=== PATIENT | female | born 1970 | race African-American/Black ===

== ENCOUNTER 2023-05-09 15:36 | Emergency (ER) | payer MEDICARE, OTHER ==
[2023-05-09 16:33] VITALS: RESP 18
--- NOTE | 2023-05-09 16:35 | ED ---
Headache HPI - General Source: patient, RN notes reviewed Mode of arrival: ambulatory Limitations: no limitations <Haley Burns - Last Filed: 05/09/23 16:34> <Malka Lynch - Last Filed: 05/09/23 18:58> - General Chief Complaint: Headache Stated Complaint: [place]/from [place] Time Seen by Provider: 05/09/23 16:34 - History of Present Illness Initial Comments: Patient is a 52-year-old female presented to the ER with a chief complaint of a headache. Patient is a resident at [facility]. She states a week ago she fell and hit her head and has been experiencing dizziness and headache since. (Haley Burns) Patient is a 52-year-old female with history of hypertension and substance abuse who presents emergency room with complaints of persistent headaches over the last week. Patient states that she had a fall into a wall and onto the floor about 2 weeks ago while visiting a "crack house". Patient denies any loss of consciousness at that time however has had persistent headache then. She's been taking Motrin Tylenol symptom relief. She denies any worsening pain. She denies any vision changes however does have occasional complaints. She denies that this is the worst headache of her life or thunderclap headache. Patient denies any cough congestion fevers or other flulike symptoms. Patient resides at [facility] where she is undergoing treatment for crack cocaine abuse. She has not used drugs in over a month. Patient states she is on Topamax for crack cocaine cravings. she is not anticoagulated. she denies any previous TBI or concussions. (Malka Lynch) - Related Data Previous Rx's Medication Instructions Recorded Ketorolac [Toradol] 10 mg PO Q8HR #15 tab 05/09/23 diphenhydrAMINE [Benadryl] 25 mg PO QID PRN #20 capsule 05/09/23 Allergies Allergy/AdvReac Type Severity Reaction Status Date / Time losartan Allergy Rash/Hives Verified 05/09/23 16:17 Penicillins Allergy Rash/Hives Verified 05/09/23 16:17 buspirone [From BuSpar] AdvReac Nausea & Verified 05/09/23 16:17 Vomiting risperidone AdvReac Nausea & Verified 05/09/23 16:17 Vomiting Review of Systems ROS Other: All systems not noted in ROS Statement are negative. <Haley Burns - Last Filed: 05/09/23 16:34> ROS Other: All systems not noted in ROS Statement are negative. <Malka Lynch - Last Filed: 05/09/23 18:58> ROS Statement: Those systems with pertinent positive or pertinent negative responses have been documented in the HPI. Past Medical History Past Medical History: Asthma, Hypertension History of Any Multi-Drug Resistant Organisms: None Reported Past Surgical History: Section, Heart Catheterization, Hernia Repair, Tonsillectomy Past Psychological History: No Psychological Hx Reported Smoking Status: Never smoker Past Alcohol Use History: None Reported Past Drug Use History: Cocaine <Haley Burns - Last Filed: 05/09/23 16:34> General Exam Limitations: no limitations <Haley Burns - Last Filed: 05/09/23 16:34> Limitations: no limitations General appearance: alert, in no apparent distress Head exam: Present: atraumatic Eye exam: Present: normal appearance, PERRL, EOMI ENT exam: Present: normal exam, mucous membranes moist, TM's normal bilaterally, other (No hemotympanum bilaterally) Neck exam: Present: normal inspection, tenderness (mild midline pain, no ecchymosis or erythema. normal ROM. neurologically intact.), full ROM Respiratory exam: Present: normal lung sounds bilaterally Cardiovascular Exam: Present: regular rate Extremities exam: Present: full ROM Back exam: Present: full ROM Neurological exam: Present: alert, oriented X3, CN II-XII intact Psychiatric exam: Present: normal affect, normal mood Skin exam: Present: warm, dry <Malka Lynch - Last Filed: 05/09/23 18:58> - General Exam Comments Initial Comments: Visual Physical Exam Vital signs reviewed General: Well-appearing, nontoxic, no acute distress. Head: Normocephalic, atraumatic Eyes: PERRLA, EOMI ENT: Airway patent Chest: Nonlabored breathing Skin: No visual rash, normal skin tone Neuro: Alert and oriented 3 Musculoskeletal: No gross abnormalities (Haley Burns) Course <Malka Lynch - Last Filed: 05/09/23 18:58> Vital Signs 05/09/23 16:14 Temperature 98 F Pulse Rate 62 Respiratory 18 Rate Blood Pressure 129/85 O2 Sat by Pulse 98 Oximetry - Reevaluation(s) Reevaluation #1: 05/09/23 18:51 Patient was given Benadryl Compazine and after the CT of the head is negative for any hemorrhage or skull fracture or other acute changes. ON Reevaluation patients pain has improved. i discussed xray of the cervical spine which shows degenerative changes within the fractures of the vertebrae other acute changes. She is neurologically intact and denies Headache. The headaches come and go and do improve with Tylenol and Motrin at times therefore no LP or MRI was ordered at today's visit. Discussed treatment plan at home and signs return to the emergency room. Patient understands she is not to take the Motrin if she takes Toradol for the headache. I discussed patient's symptoms workup and disposition with attending physician Dr. Victor today 05/09/23 18:53 (Malka Lynch) Medical Decision Making <Haley Burns - Last Filed: 05/09/23 16:34> - Radiology Data Radiology results: report reviewed, image reviewed <Malka Lynch - Last Filed: 05/09/23 18:58> - Medical Decision Making I performed the quick note portion of the exam. Electronically signed by Haley Burns PA-C (Haley Burns) Was pt. sent in by a medical professional or institution ([facility], JOINER, urgent care, hospital, or longterm...) When possible be specific @ -[No] Did you speak to anyone other than the patient for history (EMS, parent, family, police, friend...)? What history was obtained from this source @ -[No] Did you review nursing and triage notes (agree or disagree)? Why? @ -[I reviewed and agree with nursing and triage notes] Were old charts reviewed (outside hosp., previous admission, EMS record, old EKG, old radiological studies, urgent care reports/EKG's, longterm records)? Report findings @ -[No old charts were reviewed] Differential Diagnosis (chest pain, altered mental status, abdominal pain women, abdominal pain men, vaginal bleeding, weakness, fever, dyspnea, syncope, headache, dizziness, GI bleed, back pain, seizure, CVA, palpatations, mental health, musculoskeletal)? @ Head injury, concussion, skull fracture, CVA, substance abuse, withdrawal symptoms EKG interpreted by me (3pts min.). @ -[As above] X-rays interpreted by me (1pt min.). @ -Cervical spine x-ray is negative for any acute changes or fractures however there is degenerative changes seen on the imaging. ] CT interpreted by me (1pt min.). @ -[CT of the head is negative for any skull fracture, hemorrhage or other acute changes] U/S interpreted by me (1pt. min.). @ -[None done] What testing was considered but not performed or refused? (CT, X-rays, U/S, labs)? Why? @ -[None] What meds were considered but not given or refused? Why? @ -[None] Did you discuss the management of the patient with other professionals (professionals i.e. , PA, JOINER, lab, RT, psych nurse, neonatal social worker, bicycle designer, teacher, control officer, rn case mgr)? Give summary @ -[No] Was smoking cessation discussed for >3mins.? @ -[No] Was critical care preformed (if so, how long)? @ -[No] Were there social determinants of health that impacted care today? How? (Homelessness, low income, unemployed, alcoholism, drug addiction, transportation, low edu. Level, literacy, decrease access to med. care, fdc, rehab)? @ -[No] Was there de-escalation of care discussed even if they declined (Discuss DNR or withdrawal of care, Hospice)? DNR status @ -[No] What co-morbidities impacted this encounter? (DM, HTN, Smoking, COPD, CAD, Cancer, CVA, ARF, Chemo, Hep., AIDS, mental health diagnosis, sleep apnea, morbid obesity)? @ -[None] Was patient admitted / discharged? Hospital course, mention meds given and route, prescriptions, significant lab abnormalities, going to OR and other pertinent info. @ -[Patient is alert and oriented with no neurological symptoms. She is moving all extremities without limitations. Her head pain improved with Toradol, Benadryl emergency room. Discussed imaging results and treatment plan with the patient is an outpatient. We discussed signs return to the emergency room. She understands [facility] treatment discharge plan.] Undiagnosed new problem with uncertain prognosis? @ -[No] Drug Therapy requiring intensive monitoring for toxicity (Heparin, Nitro, Insulin, Cardizem)? @ -[No] Were any procedures done? @ -[No] Diagnosis/symptom? @ -Head injury without loss consciousness, cervical spine contusion, suspected concussion Acute, or Chronic, or Acute on Chronic? @ -[Acute Uncomplicated (without systemic symptoms) or Complicated (systemic symptoms)? @ -[default] Side effects of treatment? @ -[No] Exacerbation, Progression, or Severe Exacerbation? @ -[No] Poses a threat to life or bodily function? How? (Chest pain, [place], [place], pneumonia, PE, COPD, DKA, ARF, appy, cholecystitis, CVA, Diverticulitis, Homicidal, Suicidal, threat to staff... and all critical care pts) @ -[No] (Malka Lynch) Disposition <Haley Burns - Last Filed: 05/09/23 16:34> Is patient prescribed a controlled substance at d/c from ED?: No When asked, does pt state using other controlled substances?: No If prescribed controlled substance>3 days was MAPS reviewed?: No If opioid is for acute pain is fill amount 7 days or less?: No If Rx opioid, was Start Talking consent form obtained?: No Time of Disposition: 18:58 <Malka Lynch - Last Filed: 05/09/23 18:58> Clinical Impression: Head injury, acute, without loss of consciousness, Concussion, Contusion of cervical spinal region Disposition: HOME SELF-CARE Condition: Good Instructions (If sedation given, give patient instructions): Acute Headache (ED), Concussion (ED), Cervical Strain (ED) Additional Instructions: DO NOT TAKE THE TORADOL IF YOU TAKE MOTRIN DO NOT DRIVE WHILE TAKING BENADRYL. ONLY TAKE IF TORADOL DOES NOT RELIEVE THE HEAD PAIN Return to the emergency room for any abnormal behavior, abnormal speech, vision changes or new concerning symptoms Referrals: None,Stated [REFERRING] - 1-2 days
--- NOTE | 2023-05-09 17:39 | CT ---
EXAMINATION TYPE: CT brain wo con DATE OF EXAM: 05/09/2023 COMPARISON: None HISTORY: 52-year-old female Headache TECHNIQUE: Examination was done in axial plane without intravenous contrast. Coronal and sagittal r econstructions performed. CT DLP: 1196.4 mGycm Automated exposure control for dose reduction was used. FINDINGS: There is no evidence of acute intracranial hemorrhage, acute ischemic changes, mass, mass-effect, or extra-axial fluid collection. There is no effacement of cerebral sulci or basal subarachnoid cister ns. There is no hydrocephalus. There is no midline shift. Bender-white matter distinction is preserv ed. Left nasal septal deviation. Paranasal sinuses and mastoid air cells well pneumatized. Orbits and santana bes are intact. IMPRESSION: No acute intracranial abnormality seen.
[2023-05-09] MEDS: BUTALB/APAP/CAFF 50-325-40MG TAB PO STA (17:42)
[2023-05-09] MEDS: KETOROLAC 15 MG/ML 1 ML VIAL IM STA (18:04)
[2023-05-09] MEDS: diphenhydrAMINE 50 MG CAP PO STA (18:05)
[2023-05-09] MEDS: PROCHLORPERAZINE 5 MG TAB PO STA (18:10)
--- NOTE | 2023-05-09 18:35 | XR ---
EXAMINATION TYPE: XR cervical spine 5 views comp DATE OF EXAM: 05/09/2023 COMPARISON: None HISTORY: 52-year-old female fall and pain, complaining of headache FINDINGS: No predental space widening or prevertebral soft tissue swelling. Moderate disc/endplate degenerative change especially C4-C7 levels. Scattered uncovertebral joint and facet arthropathy especially mid c ervical spine. Alignment is maintained. On the left, changes result in mild bony neural foraminal narrowing at C4-C5 and C5-C6. On the right, changes result in moderate bony neuroforaminal narrowing C4-C5. Normal odontoid view. IMPRESSION: Moderate spondylotic changes especially mid to lower cervical spine. No malalignment. Changes result in moderate bony neuroforaminal narrowing on the right at C4-C5.
[2023-05-09 19:20] VITALS: BP 106/66; PULSE 68; TEMP 98.1
== END 2023-05-09 19:17 | disposition home or self-care (01) ==
LOC: EC 15:36
DX: S06.0XAA Concussion with loss of consciousness status unknown, initial encounter (principal); S10.93XA Contusion of unspecified part of neck, initial encounter; I10 Essential (primary) hypertension; J45.909 Unspecified asthma, uncomplicated; Z88.0 Allergy status to penicillin; Z88.8 Allergy status to other drugs, medicaments and biological substances; W22.8XXA Striking against or struck by other objects, initial encounter
CPT/HCPCS: 72050; 70450; 99284; 96372; S0183; J1885

== ENCOUNTER 2023-05-17 10:04 | Emergency (ER) | payer MEDICARE, OTHER ==
[2023-05-17 10:29] VITALS: RESP 18; TEMP 98.7
--- NOTE | 2023-05-17 10:30 | ED ---
General Adult HPI - General Chief complaint: Chest Pain Stated complaint: Chest Pain Time Seen by Provider: 05/17/23 10:07 Source: patient, EMS, RN notes reviewed, old records reviewed Mode of arrival: EMS Limitations: no limitations - History of Present Illness Initial comments: 52 yo female with an episode of left-sided chest pain. Patient is presenting for evaluation from [facility] where she is currently receiving rehabilitation for crack cocaine abuse. She states she has not used in the past 1 month. She does have history of previous heart attack which she states was related to cocaine abuse. No previous stenting. Patient is alert and oriented. She states her pain is improved no diaphoresis. No vomiting. No radiation. - Related Data Home Medications Medication Instructions Recorded Confirmed ARIPiprazole [Abilify] 5 mg PO DAILY 05/17/23 05/17/23 Acetaminophen Tab [Tylenol] 650 mg PO Q4H PRN MDD 4 DOSES 05/17/23 05/17/23 Albuterol Sulfate [Albuterol 2 puff PO RT-Q6H PRN 05/17/23 05/17/23 Sulfate Hfa] Calcium/Mag/Zinc/Vit D3 1 tab PO TID PRN 05/17/23 05/17/23 Chlorpheniramine Maleate 4 mg PO Q4H PRN 05/17/23 05/17/23 [Chlor-Trimeton] Docusate [Colace] 100 mg PO BID PRN 05/17/23 05/17/23 Ferrous Sulfate [Feosol] 325 mg PO DAILY 05/17/23 05/17/23 Ibuprofen [Motrin] 600 mg PO QID PRN 05/17/23 05/17/23 Levothyroxine Sodium [Synthroid] 100 mcg PO DAILY 05/17/23 05/17/23 Lisinopril-Hctz 20-25 mg 1 tab PO DAILY 05/17/23 05/17/23 [Zestoretic 20-25] Multivitamins, Thera [Multivitamin 1 tab PO DAILY 05/17/23 05/17/23 (formulary)] Mylanta 30 ml PO Q4H PRN 05/17/23 05/17/23 RX: Aspirin 325 mg PO DAILY 05/17/23 05/17/23 RX: Aspirin 325 mg PO DAILY 05/17/23 05/17/23 Sertraline HCl [Zoloft] 150 mg PO DAILY 05/17/23 05/17/23 Thiamine [Vitamin B-1] 100 mg PO DAILY 05/17/23 05/17/23 Topiramate [Topamax] 75 mg PO BID 05/17/23 05/17/23 amLODIPine [Norvasc] 10 mg PO DAILY 05/17/23 05/17/23 guaiFENesin [guaiFENesin Oral 200 mg PO Q4H PRN 05/17/23 05/17/23 Solution] traZODone HCL [Desyrel] 50 - 150 mg PO HS PRN 05/17/23 05/17/23 Allergies Allergy/AdvReac Type Severity Reaction Status Date / Time losartan Allergy Rash/Hives Verified 05/17/23 10:13 Penicillins Allergy Rash/Hives Verified 05/17/23 10:59 buspirone [From BuSpar] AdvReac Nausea & Verified 05/17/23 10:13 Vomiting risperidone AdvReac Nausea & Verified 05/17/23 10:13 Vomiting Review of Systems ROS Statement: Those systems with pertinent positive or pertinent negative responses have been documented in the HPI. ROS Other: All systems not noted in ROS Statement are negative. Past Medical History Past Medical History: Asthma, Hypertension History of Any Multi-Drug Resistant Organisms: None Reported Past Surgical History: Section, Heart Catheterization, Hernia Repair, Tonsillectomy Past Psychological History: No Psychological Hx Reported Smoking Status: Never smoker Past Alcohol Use History: None Reported Past Drug Use History: Cocaine General Exam General appearance: alert, in no apparent distress Head exam: Present: atraumatic, normocephalic Eye exam: Present: normal appearance, PERRL ENT exam: Present: normal exam Neck exam: Present: normal inspection. Absent: tenderness, meningismus Respiratory exam: Present: normal lung sounds bilaterally. Absent: respiratory distress, wheezes Cardiovascular Exam: Present: regular rate, normal rhythm GI/Abdominal exam: Present: soft. Absent: distended, tenderness Extremities exam: Present: normal inspection, normal capillary refill Neurological exam: Present: alert, oriented X3, CN II-XII intact. Absent: motor sensory deficit Psychiatric exam: Present: normal affect, normal mood Skin exam: Present: warm Course Vital Signs 05/17/23 10:09 Temperature 98.7 F Pulse Rate 76 Respiratory 18 Rate Blood Pressure 133/78 O2 Sat by Pulse 100 Oximetry - Reevaluation(s) Reevaluation #1: 05/17/23 11:16 Patient reevaluated, resting comfortably Medical Decision Making - Medical Decision Making Was pt. sent in by a medical professional or institution ([facility], DESIGN LEAD, urgent care, hospital, or jail...) When possible be specific @ -No Did you speak to anyone other than the patient for history (EMS, parent, family, police, friend...)? What history was obtained from this source @ -No Did you review nursing and triage notes (agree or disagree)? Why? @ -I reviewed and agree with nursing and triage notes Were old charts reviewed (outside hosp., previous admission, EMS record, old EKG, old radiological studies, urgent care reports/EKG's, jail records)? Report findings @ -No old charts were reviewed Differential Diagnosis (chest pain, altered mental status, abdominal pain women, abdominal pain men, vaginal bleeding, weakness, fever, dyspnea, syncope, headache, dizziness, GI bleed, back pain, seizure, CVA, palpatations, mental health, musculoskeletal)? @ -[Differential Chest Pain: Stable Angina, Unstable Angina, STEMI, NSTEMI Aortic Dissection, Pneumothorax, Musculoskeletal, Esophageal Spasm GERD, Cholecystitis, Pancreatitis, Zoster, this is not meant to be an all-inclusive list. EKG interpreted by me (3pts min.). @ -Sinus rhythm rate of 66, NJ interval 195, QRS duration 97, QTc 399, no ST segment changes. X-rays interpreted by me (1pt min.). @ -Chest x-ray negative for acute cardiopulmonary findings CT interpreted by me (1pt min.). @ -[None done U/S interpreted by me (1pt. min.). @ -None done What testing was considered but not performed or refused? (CT, X-rays, U/S, l abs)? Why? @ -None What meds were considered but not given or refused? Why? @ -None Did you discuss the management of the patient with other professionals (professionals i.e. R[facility] Salazar, DESIGN LEAD, lab, RT, psych nurse, professor of social work, flame channeler, teacher, business enterprise officer, mattress spring encaser)? Give summary @ -No Was smoking cessation discussed for >3mins.? @ -No Was critical care preformed (if so, how long)? @ -No Were there social determinants of health that impacted care today? How? (Homelessness, low income, unemployed, alcoholism, drug addiction, transportation, low edu. Level, literacy, decrease access to med. care, [facility], rehab)? @ -No Was there de-escalation of care discussed even if they declined (Discuss DNR or withdrawal of care, Hospice)? DNR status @ -No What co-morbidities impacted this encounter? (DM, HTN, Smoking, COPD, CAD, Cancer, CVA, ARF, Chemo, Hep., AIDS, mental health diagnosis, sleep apnea, morbid obesity)? @ -Prior drug abuse history Was patient admitted / discharged? Hospital course, mention meds given and route, prescriptions, significant lab abnormalities, going to OR and other pertinent info. @ -[52-year-old female with an episode of left-sided upper chest pain which is resolved. This did not have typical features. Her EKG is sinus rhythm without ST segment elevation. Chest x-ray is clear. She remains asymptomatic while in the emergency department. She has normal CBC, normal CMP, negative troponin. We did discuss possibility of admission for further testing, patient declines at this time stating she is feeling better. Undiagnosed new problem with uncertain prognosis? @ -No Drug Therapy requiring intensive monitoring for toxicity (Heparin, Nitro, Insul in, Cardizem)? @ -No Were any procedures done? @ -No Diagnosis/symptom? @Chest pain, resolved Acute, or Chronic, or Acute on Chronic? @ -[Acute Uncomplicated (without systemic symptoms) or Complicated (systemic symptoms)? @ -Default Side effects of treatment? @ -No Exacerbation, Progression, or Severe Exacerbation? @ -No Poses a threat to life or bodily function? How? (Chest pain, [place], [place], pneumonia, PE, COPD, DKA, ARF, appy, cholecystitis, CVA, Diverticulitis, Homicidal, Suicidal, threat to staff... and all critical care pts) @ -Low risk at this time - Lab Data Result diagrams: 05/17/23 10:20 05/17/23 10:20 Lab Results 05/17/23 05/17/23 05/17/23 Range/Units 10:20 10:20 10:20 WBC 5.2 (3.8-10.6) k/uL RBC 3.66 L (3.80-5.40) m/uL Hgb 11.2 L (11.4-16.0) gm/dL Hct 33.3 L (34.0-46.0) % MCV 91.1 (80.0-100.0) fL MCH 30.7 (25.0-35.0) pg MCHC 33.7 (31.0-37.0) g/dL RDW 15.3 (11.5-15.5) % Plt Count 161 (150-450) k/uL MPV 9.6 Neutrophils % 62 % Lymphocytes % 25 % Monocytes % 7 % Eosinophils % 2 % Basophils % 1 % Neutrophils # 3.2 (1.3-7.7) k/uL Lymphocytes # 1.3 (1.0-4.8) k/uL Monocytes # 0.4 (0-1.0) k/uL Eosinophils # 0.1 (0-0.7) k/uL Basophils # 0.0 (0-0.2) k/uL PT 10.5 (10.0-12.5) sec INR 0.9 (<1.2) APTT 23.7 (22.0-30.0) sec Sodium 137 (137-145) mmol/L Potassium 3.9 (3.5-5.1) mmol/L Chloride 106 (98-107) mmol/L Carbon Dioxide 24 (22-30) mmol/L Anion Gap 7 mmol/L BUN 25 H (7-17) mg/dL Creatinine 0.55 (0.52-1.04) mg/dL Est GFR (CKD-EPI)AfAm >90 (>60 ml/min/1.73 sqM) Est GFR (CKD-EPI)NonAf >90 (>60 ml/min/1.73 sqM) Glucose 94 (74-99) mg/dL Calcium 8.6 (8.4-10.2) mg/dL Magnesium 2.0 (1.6-2.3) mg/dL Total Bilirubin 0.5 (0.2-1.3) mg/dL AST 27 (14-36) U/L ALT 12 (4-34) U/L Alkaline Phosphatase 66 (38-126) U/L Troponin I (0.000-0.034) ng/mL Total Protein 7.1 (6.3-8.2) g/dL Albumin 3.6 (3.5-5.0) g/dL 05/17/23 Range/Units 10:20 WBC (3.8-10.6) k/uL RBC (3.80-5.40) m/uL Hgb (11.4-16.0) gm/dL Hct (34.0-46.0) % MCV (80.0-100.0) fL MCH (25.0-35.0) pg MCHC (31.0-37.0) g/dL RDW (11.5-15.5) % Plt Count (150-450) k/uL MPV Neutrophils % % Lymphocytes % % Monocytes % % Eosinophils % % Basophils % % Neutrophils # (1.3-7.7) k/uL Lymphocytes # (1.0-4.8) k/uL Monocytes # (0-1.0) k/uL Eosinophils # (0-0.7) k/uL Basophils # (0-0.2) k/uL PT (10.0-12.5) sec INR (<1.2) APTT (22.0-30.0) sec Sodium (137-145) mmol/L Potassium (3.5-5.1) mmol/L Chloride (98-107) mmol/L Carbon Dioxide (22-30) mmol/L Anion Gap mmol/L BUN (7-17) mg/dL Creatinine (0.52-1.04) mg/dL Est GFR (CKD-EPI)AfAm (>60 ml/min/1.73 sqM) Est GFR (CKD-EPI)NonAf (>60 ml/min/1.73 sqM) Glucose (74-99) mg/dL Calcium (8.4-10.2) mg/dL Magnesium (1.6-2.3) mg/dL Total Bilirubin (0.2-1.3) mg/dL AST (14-36) U/L ALT (4-34) U/L Alkaline Phosphatase (38-126) U/L Troponin I <0.012 (0.000-0.034) ng/mL Total Protein (6.3-8.2) g/dL Albumin (3.5-5.0) g/dL Disposition Clinical Impression: Atypical chest pain Disposition: HOME SELF-CARE Condition: Good Instructions (If sedation given, give patient instructions): Chest Pain (ED) Additional Instructions: Follow-up with your primary care provider and return to the emergency department with worsening or changing symptoms. Is patient prescribed a controlled substance at d/c from ED?: No Referrals: Nonstaff,Physician [Primary Care Provider] - 1-2 days Time of Disposition: 11:17
--- NOTE | 2023-05-17 10:43 | XR ---
EXAMINATION TYPE: XR chest 2V DATE OF EXAM: 05/17/2023 COMPARISON: NONE TECHNIQUE: PA and lateral views submitted. HISTORY: Chest pain FINDINGS: The lungs are clear and there is no pneumothorax, pleural effusion, or focal pneumonia. Heart size normal and no overt failure. Osseous structures intact. Limited inspiration. IMPRESSION: 1. No acute process.
[2023-05-17 10:44] LABS: African American GFR (CKD) >90 (>60 ml/min/1.73 sqM); Albumin 3.6 g/dL (3.5-5.0); Alkaline Phosphatase 66 U/L (38-126); Anion Gap 7 mmol/L; Blood Urea Nitrogen 25 mg/dL (7-17); Calcium 8.6 mg/dL (8.4-10.2); Carbon Dioxide 24 mmol/L (22-30); Chloride 106 mmol/L (98-107); Glucose 94 mg/dL (74-99); Non-African American GFR(CKD) >90 (>60 ml/min/1.73 sqM); Sodium 137 mmol/L (137-145); Total Bilirubin 0.5 mg/dL (0.2-1.3); Total Protein 7.1 g/dL (6.3-8.2)
[2023-05-17 10:59] LABS: Basophils % (A) 1 %; Eosinophils # (A) 0.1 k/uL (0-0.7); Eosinophils % (A) 2 %; HCT 33.3 % (34.0-46.0); HGB 11.2 gm/dL (11.4-16.0); INR 0.9 (<1.2); Lymphocytes # (A) 1.3 k/uL (1.0-4.8); Lymphocytes % (A) 25 %; MCH 30.7 pg (25.0-35.0); MCHC 33.7 g/dL (31.0-37.0); MCV 91.1 fL (80.0-100.0); Mean Platelet Volume 9.6; Monocytes # (A) 0.4 k/uL (0-1.0); Monocytes % (A) 7 %; Neutrophils # (A) 3.2 k/uL (1.3-7.7); Neutrophils % (A) 62 %; Partial Thromboplastin Time 23.7 sec (22.0-30.0); Platelet Count 161 k/uL (150-450); Prothrombin Time 10.5 sec (10.0-12.5); RBC 3.66 m/uL (3.80-5.40); RDW 15.3 % (11.5-15.5); WBC 5.2 k/uL (3.8-10.6)
[2023-05-17 11:05] LABS: ALT 12 U/L (4-34); AST 27 U/L (14-36); Potassium 3.9 mmol/L (3.5-5.1)
[2023-05-17 12:05] VITALS: BP 132/84; PULSE 69
== END 2023-05-17 11:48 | disposition home or self-care (01) ==
LOC: EC 10:04
DX: R07.89 Other chest pain (principal); I10 Essential (primary) hypertension; J45.909 Unspecified asthma, uncomplicated; I25.2 Old myocardial infarction; F14.10 Cocaine abuse, uncomplicated; Z79.899 Other long term (current) drug therapy; Z88.0 Allergy status to penicillin; Z88.8 Allergy status to other drugs, medicaments and biological substances
CPT/HCPCS: 36415; 71046; 80053; 83735; 84484; 85025; 85610; 85730; 93005; 99285